=== PATIENT | female | born 1990 | race Caucasian/White ===

== ENCOUNTER 2017-11-03 17:47 | Emergency (ER) | payer SELFPAY ==
[2017-11-03 17:49] VITALS: BP 135/75; PULSE 90; RESP 16; TEMP 36.7; O2SAT 98; BMI 25.8
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
[2017-11-03 19:55] LABS: hCG Titer Quant., Serum 15801 mIU/mL (<9 non-preg)
--- NOTE | 2017-11-03 19:56 | ED.RN ---
LAB CALLED WITH RESULTS. [facility] LEVEL 15, 801. DR. DONALDSON MADE AWARE. NO NEW ORDERS AT THIS TIME
--- NOTE | 2017-11-03 20:10 | ED.RN ---
2005-Temporary reports of patient assumed. Dr. Bartlett to bedside to speak with patient as she wishes to leave ED at this time. Patient began getting dressed and states she needs to leave now. AMA paper signed and patient explained risks of leaving ED. Verbalizes understanding of ability to return at any time for medical care.
== END 2017-11-03 20:20 | disposition left against medical advice (07) ==
LOC: ED 19:06
PROVIDERS: Emergency Provider Emergency Medicine
DX: O20.9 Hemorrhage in early pregnancy, unspecified (principal); Z3A.16 16 weeks gestation of pregnancy; O99.332 Smoking (tobacco) complicating pregnancy, second trimester
CPT/HCPCS: 76816; 84702; 86900; 99281; A4216; J2790